=== PATIENT | female | born 1950 | race Caucasian/White ===

== ENCOUNTER 2017-04-29 05:57 | Day surgery (SDC) | payer MEDICARE, BC ==
[2017-04-23 10:21] VITALS: BMI 25.0
--- NOTE | 2017-04-28 23:59 | HP ---
HISTORY OF PRESENT ILLNESS: Ms. Gordon is a 66-year-old woman who presents today for evaluation of bilateral C7 radiculopathies to the upper extremities. She has an MRI that was performed at [facility] that reveals a disk osteophyte complex at C6-C7 that would fit this level in particular and today she is treated this with physical therapy and injection, while they help only last for short periods of time and prefers to discuss possible surgical intervention. PAST MEDICAL HISTORY: Significant for melanoma, gastroesophageal reflux disease. CURRENT MEDICATIONS: Nexium, Estrace. ALLERGIES: HYDROCODONE. PHYSICAL EXAMINATION: The patient is alert and oriented x3. Gait is normal, no ataxia. Upper extre mity motor exam reveals full strength bilaterally and all movements of the upper extremities. She norman s a positive Spurling's maneuver bilaterally. ASSESSMENT: Cervical radiculopathy. PLAN: Dr. Blount met with the patient, reviewed imaging and advocated for a C6-C7 ACDF. He explained to the patient the risks, benefits, and alternatives to the procedure. The patient expressed unders tanding and would like to move forward with surgery as discussed. I do believe the patient is mental ly competent and capable of making medical decisions for herself and we will move forward with wander y as planned.
[2017-04-29] MEDS ORDERED: Thrombin 5000 UNITS/5 ML VIAL ONE (06:16)
[2017-04-29] MEDS ORDERED: CEFAZOLIN/Water 2 GM/20 ML SYRINGE ONE ×2 (06:26→10:05)
[2017-04-29] MEDS ORDERED: Midazolam HCl 2 mg/2 ml Vial ONE (06:44)
[2017-04-29] MEDS ORDERED: Fentanyl 250 MCG/5 ML VIAL ONE (06:45)
--- NOTE | 2017-04-29 08:23 | OP ---
DATE OF PROCEDURE: 04/29/2017 SURGEON: Sunny Blount M.D. LINE MAINTAINER: Jonah Carr PA-C INDICATION: Pain. DIAGNOSIS: Cervical radiculopathy. PROCEDURE: Anterior cervical discectomy and fusion C6-7. ANESTHESIA: General. TECHNIQUE: The patient was brought into the operating room and placed under anesthesia. She was craig andreas on the table in supine position. A transverse incision was planned over the lateral aspect of th e neck on the right. After prepping and draping and after an appropriate operative pause, the incisi on was created. The underlying platysma muscles identified and incised. A blunt tissue plane anteri or to the sternocleidomastoid muscle was used to gain access to the prevertebral space. Self-retaini ng retractors were placed in the wound for optimal exposure. After confirming the appropriate level, serum fluoroscopy, an annulotomy was performed in the C6-7 disk space. All disk material as well as anterior and posterior osteophytes were removed. After complete decompression, a 6 mm lordotic PEEK cage packed with allograft and autograft material was placed within the interbody space. An anterio r cervical plate was then fashioned in the front spine and secured with a total of 4 fixed screws. M idline and lateral structures were inspected and found to be free from significant trauma. The wound was irrigated. Hemostasis was maintained throughout. The wound was then closed in anatomic layers and a pressure dressing was applied. There were no known procedural complications.
[2017-04-29] MEDS ORDERED: Propofol 200 MG/20 ML VIAL ONE (16:40)
[2017-04-29] MEDS ORDERED: Glycopyrrolate 0.2 MG/ML 5 ML SYRINGE ONE (16:40)
[2017-04-29] MEDS ORDERED: Lidocaine 1% PF 5 ML VIAL ONE (16:40)
[2017-04-29] MEDS ORDERED: Ondansetron HCl/PF 4 MG/2 ML Vial ONE (16:40)
[2017-04-29] MEDS ORDERED: Ketorolac Tromethamine 30 MG/ML VIAL ONE (16:40)
[2017-04-29] MEDS ORDERED: ePHEDrine/0.9% NaCl/PF SYRINGE 50 mg/10 ml ONE (16:40)
== END 2017-04-29 10:20 | disposition home or self-care (01) ==
LOC: SDC 05:57
PROVIDERS: ATTEND Neurological Surgery
PROC: 0RG10A0 Fusion of Cervical Vertebral Joint with Interbody Fusion Device, Anterior Approach, Anterior Column, Open Approach (ICD-10-PCS; principal; 2017-04-29)
DX: M54.12 Radiculopathy, cervical region (principal); M25.78 Osteophyte, vertebrae; K21.9 Gastro-esophageal reflux disease without esophagitis; Z79.890 Hormone replacement therapy; Z79.899 Other long term (current) drug therapy; Z88.5 Allergy status to narcotic agent
CPT/HCPCS: 76000; C1713; C1776; J1885; J2001; J2250; J2405; J2704; J3010

== ENCOUNTER 2017-05-18 10:32 | Emergency (ER) | payer MEDICARE, BC ==
[2017-05-18 11:39] LABS: Anion Gap 14 mmol/L (10-20); BUN (Urea Nitrogen) 12 mg/dL (9.8-20.1); Calc. Creatinine Clearance 0 mL/min (70-130); Calcium 9.2 mg/dL (7.8-10.44); Carbon Dioxide 24 mmol/L (23-31); Chloride 106 mmol/L (98-107); Estimated GFR-MDRD 86; Glucose 100 mg/dL (80-115); Potassium 4.1 mmol/L (3.5-5.1); Sodium 140 mmol/L (136-145)
--- NOTE | 2017-05-18 12:44 | ULT ---
LEFT LOWER EXTREMITY VENOUS ULTRASOUND WITH DOPPLER: Date: 05/18/17 HISTORY: Pain/bump behind left knee. Hyperechoic area. COMPARISON: None. TECHNIQUE: Hilliard scale, color flow, Doppler imaging, and spectral waveform analysis performed of the left lower e xtremity venous system. FINDINGS: There is compressibility, presence of flow, and augmentation in the common femoral vein, femoral vein , popliteal vein, and posterior tibial vein. There is flow in the greater saphenous vein and profunda vein. In the popliteal fossa, small Jin's cyst is suspected, measuring approximately 4.0 cm. Better inter rogation with nonemergent MRI is recommended. IMPRESSION: 1. Possible Jin's cyst. Better interrogation with nonemergent MRI. 2. No evidence of thrombus in the left lower extremity deep venous system. POS: KADEEM
== END 2017-05-18 12:17 | disposition home or self-care (01) ==
LOC: SCSER 10:32
DX: M71.22 Synovial cyst of popliteal space [Baker], left knee (principal); F17.210 Nicotine dependence, cigarettes, uncomplicated
CPT/HCPCS: 36415; 80048

== ENCOUNTER 2017-06-11 08:37 | Outpatient (CLI) | payer MEDICARE, BC ==
--- NOTE | 2017-06-11 11:00 | RAD ---
CERVICAL SPINE SERIES THREE VIEWS: History: Six weeks post op anterior cervical fusion. FINDINGS: The vertebral bodies are normal in height. There is anterolisthesis of C3 on C4 approximately 2-3 mm. Severe disc narrowing at C4-5 and C5-6. There is an anterior plate and screws placed at C6-7. Marker s of the disc implant are within the confines of the disc space. There is minimal anterolisthesis of C7 on T1. IMPRESSION: Arthritic changes and post op changes of the spine. POS: KADEEM
== END 2017-06-11 08:38 | disposition home or self-care (01) ==
LOC: TBSIIMAG 08:37
PROVIDERS: ATTEND Neurological Surgery
DX: M47.22 Other spondylosis with radiculopathy, cervical region (principal); Z98.1 Arthrodesis status
CPT/HCPCS: 72040

== ENCOUNTER 2017-11-19 09:51 | Outpatient (CLI) | payer MEDICARE, BC ==
--- NOTE | 2017-11-19 13:04 | CT ---
LOW DOSE CT SCAN OF THE CHEST FOR LUNG SCREENING: Date 11/19/17 HISTORY: Smoking history of 25 years. COMPARISON: 11/14/16. FINDINGS: No parenchymal nodules are seen on either side. Minimal scarring in the lingula again noted. There ar e minimal atelectatic changes in the left lung base. No pleural or pericardial effusions are seen. Th ere is no evidence of aneurysmal dilatation of the thoracic aorta. Bilateral breast implants are seen . There are degenerative changes in the spine. Tiny posterior left lower lobe calcified granuloma is demonstrated. IMPRESSION: Lung-RADS Category 1. Negative exam. RECOMMENDATION: Follow-up LDCT of chest is recommended in 12 months. POS: SARATHH
== END 2017-11-19 09:52 | disposition home or self-care (01) ==
LOC: CT 09:51
PROVIDERS: ATTEND Internal Medicine
DX: F17.210 Nicotine dependence, cigarettes, uncomplicated (principal)
CPT/HCPCS: G0297

== ENCOUNTER 2018-12-03 08:02 | Outpatient (CLI) | payer MEDICARE, BC ==
--- NOTE | 2018-12-03 09:47 | CT ---
LOW DOSE CT PULMONARY LUNG SCAN WITHOUT CONTRAST: HISTORY: A 20+ year smoker. COMPARISON: 11/19/2017 FINDINGS: The lungs are clear of any infiltrative process. There is minimal linear change within the left base, which appears to represent some minimal scar. No pulmonary nodules are identified. No significant mediastinal adenopathy is seen. Bilateral breast augmentation is noted. The visualized liver parenchyma shows no focal findings. IMPRESSION: Lung-RADS category 1 - negative. Yearly followup recommended. POS: TPC
== END 2018-12-03 08:03 | disposition home or self-care (01) ==
LOC: CT 08:02
PROVIDERS: ATTEND Internal Medicine
DX: F17.210 Nicotine dependence, cigarettes, uncomplicated (principal)
CPT/HCPCS: G0297

== ENCOUNTER 2020-04-26 09:32 | Outpatient (CLI) | payer MEDICARE, BC ==
--- NOTE | 2020-04-26 10:07 | RAD ---
CERVICAL SPINE SERIES 4 VIEWS WITH FLEXION AND EXTENSION: HISTORY: Neck pain. Followup surgery. Right shoulder pain. COMPARISON: A 06/11/2017 exam. FINDINGS: Anterior cervical fusion is again noted at the C6-7 level. These changes appear stable. Marked disk narrowing at C5-6 and C4-5. The anterolyses of C3 on C4 has increased since the previous study and now measures in the 4 mm range increasing slightly to 5 mm in flexion and approximately 3 mm in exten scottie. IMPRESSION: Postoperative changes of the lower cervical spine with marked arthritic change. Increasing anterolys es of C3 on C4 as discussed above. POS: SYLVIE
--- NOTE | 2020-04-26 10:23 | MRI ---
MRI CERVICAL SPINE WITHOUT CONTRAST: HISTORY: Right-sided neck pain radiating to the right shoulder, x2-3 months.. COMPARISON: None. FINDINGS: Appropriate T1 marrow signal intensity of the cervical vertebrae. Cervical spine vertebral body heigh t is maintained. No fracture. No significant STIR hyperintensity to suggest ligamentous injury. There are type I Modic changes along the right aspect of the C3-C4 disc space. Severe loss of disc sp margarita height with disc desiccation at C4-C5, C5-C6 and C6-C7 is once again demonstrated. There is anterior fusion at C6-C7 which is occurred since the previous exam. Spondylolisthesis: Interval increased spondylolisthesis at C3-C4. Currently there is 4.1 mm of anterolisthesis of C3 upo n C4, previously 1.7 mm of anterolisthesis. C7-T1: 2.3 mm of anterolisthesis. T1-T2: 2.3 mm of anterolisthesis. Anterolisthesis at C7-T1 and T1-T2 has developed since the previous exam. C2-C3: Minimal desiccation without significant loss of disc space height. Broad-based disc bulge abut s the thecal sac. No significant central canal stenosis. Mild right neural foraminal narrowing. Patent left neural foramen. C3-C4: Disc desiccation with mild loss of disc space height. Broad-based disc bulge abuts the thecal sac. Mild central canal stenosis. There is asymmetric right facet hypertrophy which has progressed when compared to the previous examination. There is moderate to severe right foraminal narrowing due to facet hypertrophy and uncovertebral hypertrophy. Mild left foraminal narrowing due to uncal vertebral hypertrophy. C4-C5: Disc desiccation with severe loss of disc space height. Broad-based disc-osteophyte complex. M oderate central canal stenosis. Moderate to severe bilateral foraminal narrowing due to uncovertebral hypertrophy. C5-C6: Disc desiccation with severe loss of disc space height. Broad-based disc-osteophyte complex. M oderate central canal stenosis. Moderate right and left foraminal narrowing due to uncovertebral hypertrophy. C6-C7: There is a disc prosthesis. Broad-based osteophyte ridge. Mild central canal stenosis. Moderat e right neural foraminal narrowing. Patent left neural foramen. C7-T1: Disc desiccation without significant loss of disc space height. No significant central canal s tenosis. Patent bilateral neural foramina. T1-T2: Disc desiccation without significant central canal stenosis. Patent bilateral neural foramina. T2-T3: Disc desiccation without significant central canal stenosis. Patent bilateral neural foramina. T3-T4: Disc desiccation without significant loss of disc space height. Patent bilateral neural forami na. IMPRESSION: 1. Multilevel degenerative changes of the cervical spine as above. 2. Progression of facet hypertrophy at C3-C4. Worsening grade 1 anterolisthesis of C3 upon C4. Interv al spondylolisthesis at C7-T1 and T1-T2. 3. Interval cervical fusion as described above. Transcribed Date/Time: 04/26/2020 10:34 AM
--- NOTE | 2020-04-26 10:36 | CT ---
CT CERVICAL SPINE WITHOUT CONTRAST: HISTORY: Right-sided neck pain. Previous surgery. COMPARISON: None. FINDINGS: No craniocervical dissociation. Appropriate alignment of the lateral masses of C1 and C2. Intact odon toid process. Appropriate alignment of the facets. There is straightening of cervical lordosis with grade 1 anterolisthesis of C3 upon C4, grade 1 retro listhesis of C7 upon T1 and T1 upon T2. Refer to cervical spine MRI performed earlier today for further evaluation. There is severe loss of disc space height and osteophyte formation at C4-C5, C5-C 6. There is a disc prosthesis with anterior fusion changes at C6-C7. No perihardware lucency. Soft tissue neck structures: No mass, lymphadenopathy or hematoma. No prevertebral soft tissue swelli ng. Upper mediastinum and lung apices: Unremarkable. Central spinal canal: There are varying degrees of central canal stenosis and foraminal narrowing. Re mattie to separate cervical spine MRI report for better evaluation of the contents of the central spinal canal and neural foramina. There is markedly right facet hypertrophy at C3-C4, likely contribu ting to the anterolisthesis of C3 upon C4. Additional facet hypertrophy at T1-T2 and T2-T3 is identified. Vertebral bodies: Cervical spine vertebral body height is maintained. No fracture. Incidentals: Mucosal disease in the visualized sphenoid sinuses. IMPRESSION: 1. Uncomplicated cervical fusion hardware at C6-C7. 2. Varying degrees of central canal stenosis and foraminal narrowing as detailed above. There is mult ilevel facet hypertrophy with resultant spondylolisthesis. Transcribed Date/Time: 04/26/2020 10:40 AM
== END 2020-04-26 09:33 | disposition home or self-care (01) ==
LOC: SCSMRI 09:32
PROVIDERS: ATTEND Surgery
DX: M25.519 Pain in unspecified shoulder (principal); M54.2 Cervicalgia; M48.02 Spinal stenosis, cervical region; M43.12 Spondylolisthesis, cervical region; M47.812 Spondylosis without myelopathy or radiculopathy, cervical region; Z98.1 Arthrodesis status
CPT/HCPCS: 72040; 72125; 72141